=== PATIENT | female | born 1935 | race Caucasian/White ===

== ENCOUNTER → 2017-03-10 | Outpatient (CLI) | payer OTHER, MEDICARE | LOC: RAD 03:12 | DX: Z12.31 Encounter for screening mammogram for malignant neoplasm of breast (principal) ==

== ENCOUNTER → 2018-04-18 | Outpatient (CLI) | payer OTHER, MEDICARE | LOC: RAD 01:12 | DX: Z12.31 Encounter for screening mammogram for malignant neoplasm of breast (principal); E78.5 Hyperlipidemia, unspecified ==

== ENCOUNTER → 2019-06-05 | Outpatient (CLI) | payer OTHER, MEDICARE | LOC: RAD 05-21 10:43 | DX: Z12.31 Encounter for screening mammogram for malignant neoplasm of breast (principal) ==